=== PATIENT | female | born 1955 | race Caucasian/White ===

== ENCOUNTER 2017-10-21 08:18 | Day surgery (SDC) | payer BC ==
[2017-10-20 11:10] VITALS: BMI 28.8
[2017-10-21] MEDS ORDERED: MIDAZOLAM HCL 2 MG/2 ML SINGLE DOSE VIAL ONE (10:17)
[2017-10-21] MEDS ORDERED: PROPOFOL 20 ML ONE ×3 (10:17→11:25)
[2017-10-21] MEDS ORDERED: LIDOCAINE 1%/EPI 1:100000 (20 ML MULTI DOSE VIAL) ONE (10:35)
[2017-10-21] MEDS ORDERED: BUPIVACAINE HCL/PF 0.5% (5MG/ML) 10 ML VIAL ONE (10:35)
[2017-10-21] MEDS ORDERED: BACITRACIN 3.5 GM OPTHALMIC OINT TUBE ONE (10:35)
[2017-10-21] MEDS ORDERED: POVIDONE-IODINE 5% OPHTHALMIC PREP 30 ML SOLUTION ONE (10:35)
[2017-10-21] MEDS ORDERED: TETRACAINE 0.5% OPHTH SOLN 2 ML BOTTLE ONE (10:35)
[2017-10-21] MEDS ORDERED: OXYMETAZOLINE 0.05% NASAL SOLUTION 15 ML BOTTLE NS ONE (10:35)
[2017-10-21] MEDS ORDERED: GELATIN, ABSORBABLE 100 EACH SPONGE TP ONE (10:36)
[2017-10-21] MEDS ORDERED: DEXAMETHASONE SOD PHOSPHATE 4 MG/1 ML VIAL ONE (11:14)
[2017-10-21] MEDS ORDERED: ONDANSETRON 4 MG/2 ML VIAL ONE (11:14)
[2017-10-21] MEDS ORDERED: LIDOCAINE HCL/PF 2% SDV 5ML VIAL ONE (11:14)
[2017-10-21] MEDS ORDERED: ceFAZolin SODIUM 1 GM VIAL ONE (11:36)
[2017-10-21] MEDS ORDERED: ONDANSETRON 4 MG/2 ML VIAL IVPUSH PRN (12:26)
[2017-10-21] MEDS ORDERED: oxyCODONE HCL 5 MG TABLET PO PRN (12:26)
[2017-10-21] MEDS ORDERED: LACTATED RINGERS SOLUTION 1,000 ML IV SCH (12:30)
[2017-10-21] MEDS ORDERED: ACETAMINOPHEN 325 MG TABLET (FP) PO PRN (13:28)
[2017-10-21 13:39] VITALS: TEMP 97.9
--- NOTE | 2017-10-21 14:18 | OP ---
DATE OF OPERATION: 10/21/2017 PREOPERATIVE DIAGNOSIS: Recurrent punctal stenosis, left upper and left lower lid, significant. POSTOPERATIVE DIAGNOSIS: Recurrent punctal stenosis, left upper and left lower lid, significant. PROCEDURE: 1. Punctoplasty, left upper lid. 2. Punctoplasty, left lower lid. 3. Silicone intubation, left lacrimal system with in-fracture inferior turbinate. SURGEON: Bhavani Mascorro MD ANESTHESIA: General. COMPLICATIONS: None. ESTIMATED BLOOD LOSS: 10-20 mL. OPERATIVE REPORT: Patient brought to the operating room and placed on the operating room table. Vital signs were monitored by Anesthesia. Tetracaine was placed in both eyes. She was placed under general anesthesia and intubated. The left upper and lower lids were injected with 2% Xylocaine and 1:100,000 epinephrine and 0.5% Marcaine in a 50:50 mixture for a total of 1-2 mL in each eyelid, and the left nostril was packed with cottonoids moistened with Afrin. The patient was prepped and draped in the usual sterile fashion, exposing both eyes and the nose. The right eye was taped closed with Steri-Strips. The upper and lower puncta were dilated, and the membranes that had closed over were pierced with a punctal dilator. A posterior snip punctoplasty was performed in the upper lid and lower lid, and this tissue was submitted for pathologic study. The puncta were widely dilated. The was then intubated with to the left upper and left lower canaliculus which were advanced into the nasolacrimal duct and individually retrieved. The inferior turbinate was impacted and, therefore, this was in-fractured slightly with a Beckemeyer to allow access to the Doty probes and then the Doty probes were retrieved with a Doty hook, and they were brought out through the external naris with minimal difficulty. There was some bleeding afterwards which necessitated Afrin spray and packing with thrombin-soaked gauze. These were eventually removed. The silicone stents were tied with a locking knot and then secured with minimal tension on the loop and left medial canthus to the left external naris with a 6-0 Prolene suture. Afrin was again sprayed in the nose. Suction was performed, and the patient was extubated and taken to the recovery room in stable condition. BHAVANI MASCORRO M.D. SARAH/[id number]
[2017-10-21 15:11] VITALS: BP 130/85; PULSE 62
--- NOTE | 2017-10-23 16:18 | PATH ---
Surgical Pathology Report Patient Name: HOLLIE BUENO [facility]. Rec. #: [id number] /Age/Gender: 1955 (Age: 62) / F Account: [id number] Location: [facility] AM[facility] Taken: 10/21/2017 Received: 10/21/2017 Reported: 10/23/2017 Physicians: Kevin Booth Specimen(s) Received LEFT PUNCTUM UPPER AND LOWER Clinical History Epiphora Final Diagnosis PUNCTUM, LEFT UPPER AND LOWER, PUNCTOPLASTY: MINUTE FRAGMENT OF SKIN SHOWING CHRONIC INFLAMMATION AND DERMAL FIBROSIS. Electronically Signed Marie Etienne M.D. Gross Description Received in formalin labeled "left punctum upper and lower," is a less than 0.1 cm in greatest dimension siddiqui soft tissue fragment. The specimen is submitted in toto in one cassette. /10/22/2017 [facility]10/22/2017
== END 2017-10-21 15:11 | disposition home or self-care (01) ==
LOC: FASU 08:18
PROVIDERS: ATTEND Ophthalmology
PROC: 087Y0DZ Dilation of Left Lacrimal Duct with Intraluminal Device, Open Approach (ICD-10-PCS; 2017-10-21)
PROC: 09SL0ZZ Reposition Nasal Turbinate, Open Approach (ICD-10-PCS; 2017-10-21)
PROC: 089 Eye, Drainage (ICD-10-PCS; principal; 2017-10-21 11:42)
DX: H04.552 Acquired stenosis of left nasolacrimal duct (principal)
CPT/HCPCS: 88304-TC; 94760

== ENCOUNTER 2021-08-17 07:44 | Day surgery (SDC) | payer OTHER, BC ==
[2021-08-16 13:25] VITALS: BMI 28.6
[2021-08-17] MEDS ORDERED: PROPOFOL 20 ML ONE ×4 (08:14)
[2021-08-17] MEDS ORDERED: LIDOCAINE HCL/PF 2% SDV 5ML VIAL ONE (08:14)
[2021-08-17 09:42] VITALS: BP 142/83; PULSE 71; TEMP 97.2
== END 2021-08-17 10:15 | disposition home or self-care (01) ==
LOC: FASU-ENDO 07:44
PROVIDERS: ATTEND Internal Medicine Gastroenterology
PROC: 0DJD8ZZ Inspection of Lower Intestinal Tract, Via Natural or Artificial Opening Endoscopic (ICD-10-PCS; principal; 2021-08-17 09:17)
DX: Z12.11 Encounter for screening for malignant neoplasm of colon (principal); K64.1 Second degree hemorrhoids; K57.30 Diverticulosis of large intestine without perforation or abscess without bleeding